=== PATIENT | female | born 1980 | race Caucasian/White ===

== ENCOUNTER 2024-12-10 08:54 | Day surgery (SDC) | payer BC, OTHER ==
[2024-12-06 16:36] LABS: BASOPHILS % (AUTO) 0.4 % (0-1); EOSINOPHILS # (AUTO) 0.2 X10'3 (0-0.9); EOSINOPHILS % (AUTO) 2.8 % (0-6); LYMPHOCYTES # (AUTO) 2.7 X10'3 (1.1-4.8); LYMPHOCYTES % (AUTO) 38.2 % (21-51); MEAN CORPUSCULAR HEMOGLOBIN 30.8 PG (27.0-31.0); MEAN CORPUSCULAR HGB CONC 34.6 g/dL (33.0-36.5); MEAN PLATELET VOLUME 9.5 FL (7.4-10.4); MONOCYTES # (AUTO) 0.7 X10'3 (0-0.9); MONOCYTES % (AUTO) 9.6 % (2-12); NEUTROPHILS # (AUTO) 3.5 X10'3 (1.8-7.7); PRE OP HEMATOCRIT 42.2 % (35.0-45.0); PRE OP HEMOGLOBIN 14.6 g/dL (12.0-16.0); PRE OP PLATELET COUNT 190 X10'3 (140-440); PRE OP WHITE BLOOD COUNT 7.1 10'3 (4.8-10.8); RED BLOOD COUNT 4.74 X10'6 (4.20-5.60); RED CELL DISTRIBUTION WIDTH 13.4 % (11.5-14.5)
[2024-12-06 16:54] LABS: ALBUMIN 3.6 G/DL (3.4-5.0); ALBUMIN/GLOBULIN RATIO 1.2 (1.1-1.5); ALKALINE PHOSPHATASE 84 IU/L (46-116); BLOOD UREA NITROGEN 10 MG/DL (7-18); BUN/CREATININE RATIO 10.8 (10.0-20.0); CALCIUM 8.7 MG/DL (8.5-10.1); CHLORIDE 109 MMOL/L (99-107); CREATININE 0.93 MG/DL (0.40-0.90); PRE OP ALT 19 U/L (30-65); PRE OP ANION GAP 9 (8-16); PRE OP AST 16 U/L (10-37); PRE OP BILIRUB, TOTAL 0.2 MG/DL (0.0-1.0); PRE OP GLUCOSE 87 MG/DL (70-104); PRE OP SODIUM 142 MMOL/L (135-145); TOTAL CARBON DIOXIDE 23.6 MMOL/L (24-32); TOTAL PROTEIN 6.7 G/DL (6.4-8.2); eGFR 65 ML/MIN
[2024-12-06 16:55] LABS: PRE OP POTASSIUM 4.5 MMOL/L (3.4-5.1)
[2024-12-06 16:57] LABS: HCG SERUM QL NEGATIVE
[2024-12-10] VITALS (7 sets, daily range): BP systolic 107–126; BP diastolic 64–76; PULSE 89–109; RESP 10–17; TEMP 97.8; O2SAT 94–100
[~2024-12-10] VITALS: Ht 168.9 cm; Wt 88.0 kg
[~2024-12-10 08:54] MED LIST: ALBU18HF2 INH; BUDE10.2 INH; CYAN10007 IM; CYCL-1 PO; DICL20GE; DULO-31 PO; FLUT9.9S BOTHNARES; GALC120P; HYDR-3972 PO; IPRA3AMP31 NEB; LYR25C PO; MONT-40 PO; NALO4SPR BOTHNARES; NORE1CAP; RIME75TA PO; [UNRECOGNIZED DRUG - REMARK]
[2024-12-10] MEDS: famotidine 20mg tablet PO ONE (10:06)
[2024-12-10] MEDS: ringers solution, lacted 1,000 ML IV SCH (10:08)
[2024-12-10] MEDS ORDERED: ceFAZolin 2gm in dextrose, iso 50 ML IV ONE (10:25)
[2024-12-10] MEDS ORDERED: proCHLORperazine 10 MG/2 ml inj IV PRN (12:25)
[2024-12-10] MEDS ORDERED: meperidine/PF 25mg/ml syringe IV PRN (12:25)
[2024-12-10] MEDS ORDERED: ondansetron/PF 4mg/2ml inj IV PRN (12:25)
[2024-12-10] MEDS ORDERED: hydrALAZINE 20mg/ml inj. IV PRN (12:25)
[2024-12-10] MEDS ORDERED: labetalol 20mg/4ml (5mg/ml) syringe IV PRN (12:25)
[2024-12-10] MEDS ORDERED: ringers solution, lacted 1,000 ML IV SCH (12:25)
[2024-12-10] MEDS ORDERED: morphine 4 MG/ML inj SYRINge IV PRN (12:25)
[2024-12-10] MEDS ORDERED: morphine 2 MG/ML inj. syringe IV PRN (12:25)
[2024-12-10] MEDS ORDERED: HYDROmorphone/PF 0.2 MG/ML SYRINGE IV PRN ×2 (12:25)
[2024-12-10] MEDS ORDERED: BUPIVAcaine/PF 2.5mg/ml (0.25%) 10ml vial ONE (12:43)
[2024-12-10] MEDS ORDERED: LIDOcaine 1% (10mg/ml)w/preservative inj. 20ml MDV ONE (12:43)
[2024-12-10] MEDS ORDERED: sevoflurane 250ml liquid IH ONE (12:57)
[2024-12-10] MEDS ORDERED: midazolam 1 mg/ML 2ml injection ONE (12:59)
[2024-12-10] MEDS ORDERED: fentaNYL /PF 50mcg/ml 5ml ampule ONE (13:00)
[2024-12-10] MEDS ORDERED: ondansetron/PF 4mg/2ml inj ONE (13:17)
[2024-12-10] MEDS ORDERED: propofol inj 20 ML IV ONE (13:17)
[2024-12-10] MEDS ORDERED: LIDOcaine 2% (20mg/ml) 5ml vial ONE (13:17)
[2024-12-10] MEDS ORDERED: dexamethasone sod phosphate 4mg/ml inj. ONE (13:17)
[2024-12-10] MEDS ORDERED: ceFAZolin 1000mg inj ONE ×4 (13:24→13:30)
[2024-12-10] MEDS ORDERED: albuterol 60 PUFF/8GM Inhaler (90mcg/1 puff) IH ONE (13:24)
[2024-12-10] MEDS: acetaminophen 1,000mg/100ml IV 100 ML IV ONE (15:02)
== END 2024-12-10 15:45 | disposition home or self-care (01) ==
LOC: PAS 08:54
PROVIDERS: ATTEND Surgery
DX: C50.411 Malignant neoplasm of upper-outer quadrant of right female breast (principal); Z79.899 Other long term (current) drug therapy; G89.18 Other acute postprocedural pain; Z98.890 Other specified postprocedural states; G43.909 Migraine, unspecified, not intractable, without status migrainosus; Z88.8 Allergy status to other drugs, medicaments and biological substances
CPT/HCPCS: 19301; 36415; 38525; 38792; 64420; 64421; 71046; 80053; 82948; 84703; 85025; 93005; J0131; J0690; J2704; J7030; J7120; Z7506; Z7508; Z7512; A4215; A4618; A6449; A7000